=== PATIENT | male | born 2000 | race Caucasian/White ===

== ENCOUNTER 2020-09-05 21:14 | Emergency (ER) | payer SELFPAY ==
[~2020-09-05] VITALS: Ht 180.3 cm; Wt 140.0 kg
[~2020-09-05 21:14] MED LIST: CEPHALEXIN500 M1 PO; PERCOCET 5/321 COMBO PO; ULTRAM50 M1 PO
[2020-09-05 22:46] VITALS: BP 118/61
== END 2020-09-05 22:46 | DRG 563 ==
LOC: ED 21:14
PROC: 2W3EX1Z Immobilization of Right Hand using Splint (ICD-10-PCS; principal; 2020-09-05)
DX: S62.336A Displaced fracture of neck of fifth metacarpal bone, right hand, initial encounter for closed fracture (principal); S60.412A Abrasion of right middle finger, initial encounter; S60.414A Abrasion of right ring finger, initial encounter; W23.0XXA Caught, crushed, jammed, or pinched between moving objects, initial encounter; Y92.009 Unspecified place in unspecified non-institutional (private) residence as the place of occurrence of the external cause

== ENCOUNTER 2024-04-10 19:02 | Emergency (ER) | payer SELFPAY ==
[~2024-04-10] VITALS: Ht 180.3 cm; Wt 67.0 kg
[2024-04-10] MEDS ORDERED: valACYclovir 500 MG TAB PO ONE (19:30)
[2024-04-10] MEDS ORDERED: HYDROcodone 5 MG/Acetaminophen 325 MG/COMBO PO ONE (19:30)
[2024-04-10] MEDS ORDERED: GABAPENTIN 100 MG/CAP PO ONE (19:30)
[2024-04-10] MEDS ORDERED: NEURONTIN100 MG PO (19:37)
[2024-04-10] MEDS ORDERED: VALTREX1 GM PO (19:37)
[2024-04-10 20:00] VITALS: BP 130/89
== END 2024-04-10 20:00 | disposition home or self-care (01) | DRG 596 ==
LOC: ED 19:02
DX: B02.9 Zoster without complications (principal); Z72.0 Tobacco use